=== PATIENT | female | born 1930 | race Caucasian/White ===

== ENCOUNTER 2016-06-28 23:59 | Inpatient (IN) | payer MEDICARE, BC ==
[~2016-06-28] VITALS: Ht 149.9 cm; Wt 70.0 kg
--- NOTE | ~2016-06-28 | CO ---
ADMIT: 06/29/2016 RM/LOC: 523 [facility] MR#: [id number] 2620 [facility] [address] [place] [phone] NOR[address]O JONES [address] [place] [address] Consultation SEX: F AGE: 85 : 1930 DATE OF CONSULTATION: 06/29/2016 ATTENDING PHYSICIAN: Noreen Laws CONSULTING PHYSICIAN: Lulu Fiore MD PROBLEM: Hydronephrosis. HISTORY OF PRESENT ILLNESS: This 85-year-old female presented to the emergency room at [facility] with nausea and inability to eat with generalized weakness. During her evaluation, she was found to have acute renal insufficiency with a serum creatinine of 5.0. A renal ultrasound was then performed demonstrating bilateral severe hydronephrosis. She has had no flank pain, fever, or chills and denies recurrent urinary tract infections or gross hematuria. She feels though she has been voiding without difficulty. MEDICATIONS: 1. Nitrostat 0.4 mg p.r.n. 2. Colace 100 mg b.i.d. p.r.n. 3. Pepcid 20 mg daily. ALLERGIES: NONE. OPERATIONS: None. REVIEW OF SYSTEMS: She does have a history of coronary artery disease with myocardial infarct x2. Also, depression and anxiety. FAMILY HISTORY: Negative for urologic problems. SOCIAL HISTORY: She does not smoke nor drink. PHYSICAL EXAMINATION: GENERAL: This is an elderly 85-year-old, in no acute distress. She is oriented x3. HEENT: Unremarkable. NECK: Supple without adenopathy. ABDOMEN: Soft, without masses or tenderness throughout. EXTREMITIES: Full range of motion without deformity. NEUROLOGICAL: She is grossly intact. LABORATORY DATA: Sodium 144, potassium 4.5, chloride 111, CO2 of 21, BUN 113, ADMIT: 06/29/2016 RM/LOC: 523 [facility] MR#: [id number] [address] [address] NORBERTO JONES [address] [place] [address] Consultation SEX: F AGE: 85 : 1930 glucose 104, and creatinine 4.4. CBC showed a white count of 8600 and hematocrit of 29.3. ASSESSMENT: Bilateral hydronephrosis with acute renal insufficiency. PLAN: Abdominal and pelvic CT scan will be performed without contrast. Depending upon these results, I would recommend cystoscopy with the placement of bilateral double-J ureteral stents which can be performed in the morning. Thank you for allowing us to assist in the care of your patient. Lulu Fiore MD/ cathy JOB #: [id number] CC: Noreen Laws, Attending Physician Noreen Laws, Family Physician Noreen Laws MD
--- NOTE | 2016-06-30 04:20 | ER ---
ADMIT: 06/29/2016 RM/LOC: 523 [facility] MR#: [id number] 2620 [facility] [address] [place] [phone] NORBERTO JONES [address] [place] [address] Emergency Room Report SEX: F AGE: 85 : 1930 DATE: 06/28/2016 CHIEF COMPLAINT: Nausea, not eating well, generalized weakness. HISTORY OF PRESENT ILLNESS: The patient is an 85-year-old female, who daughter brings in for what sounds like general deterioration in overall health status. She has been seen by her primary care physician in the last 24 hours where they did some lab work which showed some worsening acute on chronic renal insufficiency with elevated creatinine and BUN. She was actually set up to get some IV fluids at the hospital later today and an outpatient ultrasound of her kidneys, but due to some nausea this evening and inability to keep fluids down, the daughter brought her in to the ER this evening. She really has no complaints of any pain but just states she does not have any energy and really no desire to eat. She does have some nausea which is not new for her, but it seems like it has been worse in the past several days. REVIEW OF SYSTEMS: Ten-point review of systems is done and otherwise negative except as in HPI. PAST MEDICAL HISTORY: Significant for coronary artery disease with an HI x2. She also has depression and anxiety. MEDICATIONS: See nurse's note. ALLERGIES: NONE. PHYSICAL EXAMINATION: VITAL SIGNS: Blood pressure is 148/91, pulse 72, respirations 18, temp 96.8. GENERAL: The patient is not in any distress. She is alert but has a flat affect. HEENT: Head is atraumatic. Pupils are equal, round, reactive to light. HEART: Regular rate and rhythm. LUNGS: Clear to auscultation. ABDOMEN: Soft, nontender, and nondistended. She does have active bowel sounds. EXTREMITIES: She has no edema in her lower extremities. Motor and sensation are grossly intact in all 4 extremities. SKIN: Warm and dry with no rashes noted. LABORATORY DATA: Hemoglobin 10.3, platelets 421. CO2 is 19, BUN is 122, glucose is 139, creatinine is 5, magnesium 2.7, albumin 2.8. MEDICAL DECISION MAKING: I just discussed the case with Dr. Laws who had ADMIT: 06/29/2016 RM/LOC: 523 [facility] MR#: [id number] [address] [address] [address]O JONES [address] [place] [address] Emergency Room Report SEX: F AGE: 85 : 1930 just seen the patient in the last day, and at this point, we will admit the patient for further workup. She did get a liter of normal saline while in the Emergency Department and some Zofran for her nausea. She did have some persistent nausea, but it was improved. The patient will be admitted in stable and improved condition. DIAGNOSES: 1. Malnutrition. 2. Generalized weakness. 3. Failure to thrive. 4. Acute on chronic renal insufficiency. 5. Volume depletion. Jean Carlos Florez MD/ afual JOB #: [id number] CC: Noreen Laws MD, Attending Physician Noreen Laws MD, Family Physician
--- NOTE | 2016-07-01 09:06 | OR ---
ADMIT: 06/29/2016 RM/LOC: 523 [facility] MR#: [id number] 2620 [facility] [address] [place] [phone] NORBERTO JONES [address] [place] [address] Operative/Delivery Room Report SEX: F AGE: 85 : 1930 SURGERY DATE: 06/30/2016 SURGEON: Lulu Fiore MD PREOPERATIVE DIAGNOSIS: Bilateral hydronephrosis. POSTOPERATIVE DIAGNOSIS: Bilateral hydronephrosis. OPERATION: Cystoscopy with insertion of bilateral double-J ureteral stents. ANESTHETIC: General. INDICATION FOR PROCEDURE: This 85-year-old female came to the emergency room complaining of nausea and vomiting and was admitted for evaluation. An abdominal ultrasound demonstrated bilateral hydronephrosis and she is admitted now for cystoscopy with placement of bilateral double-J ureteral stents. DESCRIPTION OF OPERATION: After suitable general endotracheal anesthetic was obtained, the patient was placed in a dorsal lithotomy position with her genitalia and surrounding skin prepped and draped in usual sterile fashion. Examination of the external genitalia revealed a grade 4 uterine prolapse, which was easily reduced. With reduction of the prolapse, the 23-Nicaraguan Olympus cystoscope was inserted under direct visualization into the urethra. The urethra does appear to be normal upon entering the bladder, the trigone was well developed once the prolapsed uterus was inserted. Both ureteral orifices appeared to be in normal position. The bladder mucosa was 1+ trabeculated, but without evidence of infection or tumor. There was a cloudy appearance to her urine and after the bladder was irrigated several times, this did clear. A 6-Nicaraguan whistle-tip ureteral catheter was then inserted into the right ureteral orifice and a 0.038 Glidewire then inserted through the ureteral catheter. There was tortuosity of the distal ureter which made difficult for passage of the Glidewire initially. With some mild manipulation, the Glidewire was able to be advanced up the ureter into the renal pelvis. At ADMIT: 06/29/2016 RM/LOC: 523 [facility] MR#: [id number] 2620 [facility] [address] [place] [phone] NORBERTO JONES [address] [place] [address] Operative/Delivery Room Report SEX: F AGE: 85 : 1930 this point, the whistle-tip ureteral catheter was removed and a 7-Nicaraguan 24 cm double-J ureteral stent inserted over the Glidewire positioning the stent within the renal pelvis, ureter, and bladder. The string was then removed from the distal end of the stent. The Glidewire was then removed leaving the stent in good position as noted on fluoroscopy. In a similar fashion, the contralateral stent was inserted again with similar findings. A 7-Nicaraguan 24 cm double-J ureteral stent was inserted on the contralateral side. The bladder at this point was drained, and #16-Nicaraguan Malik catheter passed per urethra into the bladder and connected to straight drainage. The patient did tolerate the procedure without complications. Lulu Fiore MD/ cathy JOB #: [id number] CC: Noreen Laws, Attending Physician Noreen Laws, Family Physician Noreen Laws MD
--- NOTE | 2016-07-05 12:41 | CO ---
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 HISTORY OF PRESENT ILLNESS: The patient is an 85-year-old female, who was admitted to the hospital because of renal failure. She is accompanied at the time of this encounter by her two daughters as well as a son-in-law. She lives with one of her daughters. Reportedly, she has been declining since last January or February, which is almost 4 or 5 months now. She still continues to work and has been fairly active all of her life. She reports that she has been struggling with depression. Mood has not been very good. Her appetite has been extremely poor. However, recently, she started having persistent nausea as well as vomiting which was becoming more and more frequent. She was seen by yourself yesterday and was noted to have a creatinine of high 4's and BUN above 100. She was admitted for further management. She has been receiving IV fluids and her daughter notes that she is making slightly more urine than she was as an outpatient now. She also had a renal ultrasound which showed bilateral nkaibgtb-xu-etpmxg hydronephrosis. She denies any mqkp-qnu-zopfbbt medications or herbal supplements. As noted above, appetite has been poor. She denies any diarrhea, but has been constipated. Denies any skin rash or nodules. She just feels poorly and has no appetite at all. Denies any dyspnea or cardiac complaints. REVIEW OF SYSTEMS: A complete review of systems is negative in detail except as mentioned in history of present illness above. PAST MEDICAL HISTORY: 1. Coronary artery disease, status post PCI. 2. Carotid stenosis. 3. Arthritis. 4. Recurrent urinary tract infections. MEDICATIONS: Reviewed in the chart. ALLERGIES: NO KNOWN DRUG ALLERGIES. SOCIAL HISTORY: Lives at home with her daughter. Lifelong nonsmoker. No alcohol or recreational drug use. FAMILY HISTORY: No family history of chronic kidney disease or renal replacement therapy. Father had rheumatic fever. PHYSICAL EXAMINATION: VITAL SIGNS: Temperature 98 Fahrenheit, pulse 73, blood pressure 122/63, saturating 96% on room air. ADMIT: 06/29/2016 RM/LOC: 523 [facility] MR#: [id number] [address] [place] [phone] [address] [place] [address] Consultation SEX: F AGE: 85 : 1930 GENERAL: She is in bed and is comfortable. HEENT: Head is nontraumatic and normocephalic. Pale conjunctivae. Dry mucosa. CHEST: Clear to auscultation. CVS: Regular rate and rhythm. S1 and S2 heard. No rubs, murmurs, or gallops. ABDOMEN: Soft, nontender. EXTREMITIES: No edema. SKIN: No rash or nodules. NEUROLOGIC: Alert, awake, and oriented x3. She is able to move all her extremities. PSYCHIATRIC: Poor eye contact. Memory is within normal limits. LABORATORY DATA: Reviewed. BMP with sodium 144, potassium 4.5, CO2 of 21. Creatinine 4.4, down from 5.0 last night. BUN is 113, down from 122 last night. Hemoglobin is 9.0. No urine studies available to me for my review. Renal ultrasound showed bilateral gabwwrjq-eg-pmgypz hydronephrosis and hydroureter. ASSESSMENT AND PLAN: 1. Acute kidney injury/chronic kidney disease stage 3/stage 4 - This is likely prerenal in etiology with a component of obstructive nephropathy. 2. Azotemia secondary to #1 above. 3. Uremia - secondary to #1 and #2 above. 4. Anemia. I will check urine studies to evaluate the etiology of her acute kidney injury further. As stated above, this is likely prerenal plus obstruction. Continue IV fluids for the time being and provide supportive care. Avoid nephrotoxins such as NSAIDs, IV contrast, or Fleets enemas. I will await Urology evaluation to see what their plan would be as far as this obstruction is concerned. There is no emergent indication for renal replacement therapy at this time. Ingrid Gutierrez MD/ cathy JOB #: [id number] CC: Noreen Laws, Attending Physician Noreen Laws, Family Physician
--- NOTE | 2016-07-05 13:23 | OR ---
ADMIT: 06/29/2016 RM/LOC: 523 [facility] MR#: [id number] [address] [facility] [address] [place] [phone] NORBERTO JONES [address] [place] [address] Operative/Delivery Room Report SEX: F AGE: 85 : 1930 SURGERY DATE: 07/02/2016 SURGEON: Michelle Ace MD PREOPERATIVE DIAGNOSES: 1. Complete procidentia. 2. Epithelial breakdown due to recurrent trauma of the vaginal epithelium. 3. 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 PROCEDURES: 1. Biopsy of vaginal/cervical epithelium around breakdown. 2. Pessary fitting. INDICATIONS FOR PROCEDURE: This is an 85-year-old female who was admitted over the weekend with renal failure due to post obstructive hydronephrosis likely due to complete procidentia. The patient has had known procidentia for a number of years and in the past had used a pessary, but had not been using that for several years. Risks, benefits, and alternatives of biopsy of the epithelial breakdown site were discussed with the patient including bleeding, infection, injury to surrounding tissues, poor wound healing, potential need for additional biopsies. The patient voiced understanding and signed consent. DESCRIPTION OF PROCEDURE: Area along the junction between the cervical epithelium and vaginal epithelium has an ischial area that extends into the posterior vaginal wall of skin breakdown where it has come in contact with clothing as well as where she sits on it. This is approximately 1 cm x 3 cm in diameter. Edges were injected with 1% lidocaine without epinephrine after being cleansed with Betadine. Tischler forceps was used to take a series of several biopsies along the epithelial edge. Monsel's was applied to the site for good hemostasis. Procidentia was then replaced and size 7 pessary with ring support was placed and was found to be a little too large. This was removed. Size 6 was then placed. The patient was then stood up, was placed on a commode, Valsalva'd multiple times, and then re-examined and pessary found to stay in place. She indicated that it was comfortable, she did not feel it, and did not feel it adjusted. She said she actually felt better with this in place after procedure. COMPLICATIONS: None. PATHOLOGY: Vaginal epithelium biopsy sent to pathology. Michelle Ace MD/ cathy JOB #: [id number] CC: Noreen Laws, Attending Physician ADMIT: 06/29/2016 RM/LOC: 523 [facility] MR#: [id number] [address] [phone] NORBERTO JONES [address] [place] [address] Operative/Delivery Room Report SEX: F AGE: 85 : 1930 Noreen Laws, Family Physician
--- NOTE | 2016-07-05 13:23 | CO ---
ADMIT: 06/29/2016 RM/LOC: 523 [facility] MR#: [id number] 2620 [facility] [address] [place] [phone] NOR[address] JONES [address] [place] [address] Consultation SEX: F AGE: 85 : 1930 DATE OF CONSULTATION: 06/30/2016 ATTENDING PHYSICIAN: Noreen Laws CONSULTING PHYSICIAN: Michelle Ace MD REFERRING PHYSICIANS: Noreen Laws MD and Lulu Fiore MD. HISTORY OF PRESENT ILLNESS: This is an 85-year-old female, who presented to [facility] on June 29, with complaints of generalized fatigue, nausea, and vomiting. She was found to have significant hydronephrosis and acute renal failure as well as generalized weakness. CT scan did show that she has an 8 cm mass in her upper abdomen likely pancreatic mass, however, she also was noted to have 5 cm pelvic mass at the level of the cervix. I was asked for consultation by Dr. Fiore for concern that her hydronephrosis is likely caused by procidentia and pelvic organ prolapse. The patient indicates that her first symptoms of pelvic organ prolapse started in the late . She did use a pessary for several years until she was unable to do a pessary cares and cleaning by herself, and then she discontinued it. She notes that maybe over the last year or so it has gotten significantly worse. She has noticed over the last several months and that when she said she has a little bit of blood in her underwear from the procidentia, but she thinks it is from the epithelium, and does not think that this is coming from her uterus. She denies any other history of postmenopausal bleeding and menopause occurred at age 53. PAST MEDICAL HISTORY: 1. Coronary artery disease, status post PCI. 2. Carotid stenosis. 3. Arthritis. 4. Recurrent urinary tract infections. PAST SURGICAL HISTORY: She had today on 06/30/2016, cystoscopy with insertion of bilateral double-J ureteral stents. MEDICATIONS: Please see electronic medical record for details. ALLERGIES: NO KNOWN DRUG ALLERGIES. SOCIAL HISTORY: She lives with her daughter. 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 No tobacco, no alcohol, and no drug use. FAMILY HISTORY: No significant family history of chronic kidney disease, renal replacement. No significant history in the family of ovarian, breast, colon, or uterine cancers. REVIEW OF SYSTEMS: Full review of systems was performed, please see HPI for pertinent details. ADMIT: 06/29/2016 RM/LOC: 523 [facility] MR#: [id number] [address] [place] [phone] [address]BERTO JONES [address] [place] [address] Consultation SEX: F AGE: 85 : 1930 PHYSICAL EXAMINATION: VITAL SIGNS: Temperature is 98.2, pulse is 76, respirations 16, blood pressure is 134/89, and 97% on room air. GENERAL: She is in no acute distress. HEART: Regular rate and rhythm. No murmurs, rubs, or gallops. LUNGS: Clear to auscultation bilaterally. ABDOMEN: Firm, however, is nontender. She does have good bowel sounds. No fluid wave noted. PELVIC: On examination of external genitalia, the patient is observed to have complete procidentia. Her cervix is approximately 5 cm in diameter. Epithelium of the cervix and prolapsed vagina does show some decreased moisturization and atrophy, and some slight thickening that is not concerning. She does have a lesion on approximately 3 to 6 o'clock on the posterior aspect of her cervix, where it joins up with the vaginal epithelium that is eroded, it is approximately 2 mm deep and approximately 1 cm wide at its widest point. Area is erythematous. No active bleeding noted, but it is likely would easily bleed with irritation. No fungating lesions or masses noted. No inguinal lymphadenopathy noted. Procidentia is easily replaced with gentle pressure. The patient does tolerate this without significant problem. Bimanual exam is limited by body habitus. The uterus does appear to be mobile and no pelvic masses noted. IMAGING AND LABORATORY DATA: CT scan from 06/29/2016, shows 8 cm pancreatic mass with bilateral hydronephrosis, partially lobulated 5.2 cm pelvic mass, which is possible a cervical mass. White count is 8.3, hemoglobin 7.7, and platelets are 291. Sodium is 148, potassium 4.2, chloride 119, CO2 of 19, BUN is 100, creatinine is 2.9, and glucose is 88. ASSESSMENT AND PLAN: This 85-year-old female with complete procidentia, this is likely contributory cause of her hydronephrosis. She is status post treatment today by Urology, which will hopefully help to correct obstructive renal failure. Given the breakdown in the epithelium over the cervix, will return tomorrow morning and biopsied the area, and because of the imaging seen on CT, would recommend having a transvaginal ultrasound just to confirm normal ADMIT: 06/29/2016 RM/LOC: 523 [facility] MR#: [id number] [address] [place] [phone] NORBERTO JONES [address] [place] [address] Consultation SEX: F AGE: 85 : 1930 pelvic anatomy and evaluate her endometrial stripe. However, this would need to be performed after replacement of her procidentia and therefore I would need to be present at the time of imaging. Discussed with the patient and her family that if all biopsies are normal, She would likely be a very good candidate for pessary. She would likely need vaginal estrogen given the lesion on her cervix to help heal that tissue and for her to tolerate the pessary in place. The patient is amenable to this. We would need to do a pessary fitting as an outpatient and we can easily arrange this. If her endometrial stripe on ultrasound is more than 4 mm, and she will potentially need an endometrial biopsy as well. Thank you very much for this interesting consultation. Michelle Ace MD/ cathy JOB #: [id number] CC: Noreen Laws, Attending Physician Noreen Laws, Family Physician
[2016-07-06] MEDS ORDERED: ASPIRIN EC81 MG PO (18:18)
[2016-07-06] MEDS ORDERED: CIPRO DPS250 MG PO (18:19)
[2016-07-06] MEDS ORDERED: MIRALAX PACKET17 GM PO (18:19)
[2016-07-06] MEDS ORDERED: SENOKOT S1 TAB PO (18:21)
[2016-07-06] MEDS ORDERED: PREMARIN VAGINA VG (18:21)
--- NOTE | 2016-07-17 21:20 | DS ---
ADMIT: 06/29/2016 RM/LOC: 523 [facility] MR#: [id number] [id number] [facility] [address] [place] [id number] NAYA JONES [address] [place] [address] Discharge Summary SEX: F AGE: 85 : 1930 ADMISSION DATE: 06/29/2016 DISCHARGE DATE: 07/05/2016 DIAGNOSES: 1. Acute renal failure secondary to bladder outlet obstruction. 2. Uremia with nausea and vomiting. 3. Hypertension. 4. Carotid artery stenosis. 5. Anxiety. 6. Weakness. 7. Weight loss. 8. Pancreatic mass 8 cm. 9. Bilateral hydronephrosis. 10.Complete uterine prolapse. 11.Anemia of chronic disease. 12.Chest pressure. 13.Acute kidney injury/chronic kidney disease, stage III and stage IV. 14.Constipation. 15.Hypocalcemia. CONSULTS: 1. Urology. 2. Nephrology. 3. OB/Gynecology. PROCEDURE: 1. Ultrasound of the kidney 06/29/2016. 2. Noncontrast CT scan of the kidney 06/29/2016. 3. CT abdomen/pelvis noncontrast. 4. Cysto with bilateral stents 06/30/2016. 5. Pessary placement. 6. Pelvic ultrasound 06/30/2016 and 07/04/2016. 7. PRBC x1. 8. Vaginal/cervical epithelial biopsy 07/02/2016. 9. CT abdomen/pelvis 07/02/2016. 10.CT biopsy pancreas 07/03/2016. REASON FOR HOSPITALIZATION: Nausea, vomiting, and acute renal failure. See dictated H and P. LABORATORY AND X-RAY DATA: Sodium 144, potassium was 4.8 down to 3.5. CO2 initially was 19, final value was 19, BUN 122 down to 35, creatinine was 5 down to 2.5, blood sugars were variable-see chart. Calcium down to 5.9, final value was 6.5, phosphorus 5.3, total bilirubin 0.4, total protein 5.8, albumin 2, alkaline phosphatase 53, AST 14, magnesium 2.7 down to 1.8. Iron 39, TIBC 184, CK was normal in the 35s, CK-MB 2.4, troponin was 0.091 down to 0.083. B12 836, ferritin 153, haptoglobin 220, white count 7.5, hemoglobin was 10.3 on admission down to 7.2, final value 8.3. Platelet count 160. No cultures obtained. Ultrasound of the kidney with bilateral moderate to severe ADMIT: 06/29/2016 RM/LOC: 523 [facility] MR#: [id number] [address] [place] [id number] NAYA JONES [address] [place] [address] Discharge Summary SEX: F AGE: 85 : 1930 hydronephrosis and hydroureter with a questionable distal obstructing mass as well as a left renal mid pole mass-like area felt to be possible hemorrhagic component. CT scan noncontrast was performed of the abdomen and pelvis, which showed an 8 cm infiltrating mass in the pancreatic head and bilateral moderate to severe hydronephrosis and hydroureter, as well as a possible 5.2 cm cervical mass, which actually turned out to be prolapsed. Ultrasound of the pelvis with probable uterine fibroids, the largest measuring 1.[address] scan abdomen and pelvis 07/03 with large complex pancreatic mass, interval bilateral ureteral stent placement and pessary, as well as 5.5 cm left adnexal complex suggesting pelvic ultrasound. Pelvic ultrasound was performed and was nondiagnostic. COURSE IN HOSPITAL: Naya was admitted with uremic symptoms due to her acute renal failure. She was hydrated. Ultrasound results were noted. We did go ahead and order a noncontrast CT scan, and due to the hydronephrosis, Nephrology was asked to see. We held her Plavix and aspirin as we felt there would probably be some procedures being done. Nephrology was on board and following along. She had a cystoscopy and bilateral stent placement. Diet was advanced. Renal function began to return to normal. Her nausea and vomiting and uremic symptoms did improve. Malik was placed at the time of her cystoscopy and will remain in place until she follows up with Dr. Fiore in Urology. She started to have more appetite and had increased energy. We did notice a pancreatic mass on scan and felt the need for further testing. MRI was problematic because she is extremely claustrophobic and would likely need sedation with anesthesia. I am not sure I am anxious to completely sedate her with her carotid artery stenosis that is significant. Also, if we did an MRI and/or decided to do an ERCP, she would have to go to [facility], which if we could get a diagnosis of what we are dealing with in other ways, that would be better for her. For her prolapse, Gynecology was asked to follow. They did do a biopsy of an exposed area that is likely due to exposure. Also placed a pessary, which she noted immediate improvement. Her hemoglobin dwindled down and got down to 7.2. She was given a unit of blood with good results. Her renal function returned to normal with infusion. We had cut back the fluids, but we decided she needed to have a CT angiogram to look at vasculature before Interventional did a biopsy of her pancreatic mass. This was started in addition to Mucomyst. She tolerated this well and actually underwent a biopsy of this area on 07/02/2016. There was still a lot of concern about what was in her pancreas. Strongly suspect that this is probably malignant but would like to have pathology. After that, we can decide what treatment we want to do, if any. She is a little bit anxious with all that has been happening as is her daughter, which is normal for both of them. We continued with hydration and some rehab due to her weakness. By 07/05/2016, she was stable and ready for dismissal. Her primary complaint at this time is constipation. Working on that with medications. Otherwise, she is stable for dismissal and close followup. Prior to dismissal, she received Aranesp and Venofer. She will be dismissed with [facility] for PT/OT and RN. DISCHARGE MEDICATIONS: ADMIT: 06/29/2016 RM/LOC: [address] [facility] MR#: [id number] [address] [facility] [address] [place] [id number] NAYA JONES [address] [place] [address] Discharge Summary SEX: F AGE: 85 : 1930 1. She will have Cipro 250 daily for 7 days. 2. Coreg 6.25 b.i.d. 3. Iron 325 daily. 4. MiraLAX daily. 5. Senokot-S two b.i.d. 6. Zocor 40 at bedtime. 7. Zoloft 25 mg daily. 8. Premarin vaginal cream at bedtime to the affected area. 9. Tylenol 650 q.4h p.r.n. 10.Plavix 75 mg daily. 11.Aspirin 81 mg daily. She will see me in 7-10 days at which time we will hopefully have prior authorized Aranesp 40 mg subcu x1. If not a very good response to this, would consider increasing to 60 mg. Will evaluate as an outpatient. She is very nervous about the biopsy. We will see what it shows and then possibly involve Oncology. Discharge medications as written, and she will see me in 7-10 days. She will have her Malik with leg bag. Time spent 50 minutes. Noreen Laws MD/ anabel JOB #: [id number] CC: Noreen Laws MD, Attending Physician Noreen Laws MD, Family Physician R MD Ingrid Cervantes MD Libby Crockett, MD
[2016-09-04] MEDS ORDERED: ZOCOR DPS40 MG PO (14:48)
[2016-09-04] MEDS ORDERED: FEOSOL-DPS325 MG PO (14:48)
[2016-09-04] MEDS ORDERED: ELIQUIS5 MG PO (14:49)
[2016-09-04] MEDS ORDERED: VIACTIV SOFT C1 EACH PO (14:49)
[2016-09-04] MEDS ORDERED: COREG DPS6.25 MG PO (14:49)
[2016-09-04] MEDS ORDERED: QUESTRAN DPS4 GM PO (14:50)
[2016-09-04] MEDS ORDERED: FLAGYL-DPS500 MG PO (14:50)
[2016-09-04] MEDS ORDERED: TUMS DPS500 MG PO (14:50)
[2016-09-04] MEDS ORDERED: MERREM500 MG IV (14:51)
[2016-09-21] MEDS ORDERED: ZOLOFT25 MG PO (14:26)
[2016-09-21] MEDS ORDERED: PLAVIX75 MG PO (14:26)
[2016-09-21] MEDS ORDERED: PREPARATION H O60 GM TP (14:28)
[2016-09-21] MEDS ORDERED: TYLENOL DPS325 MG PO (14:28)
[2016-09-21] MEDS ORDERED: HYDROPHOR OINT450 GM TP (14:29)
== END 2016-07-05 17:56 | disposition home health service (06) | DRG 683 ==
LOC: ER 23:59 → 5MS 06-29 02:15
PROVIDERS: ADMIT Internal Medicine
PROC: 0T788DZ Dilation of Bilateral Ureters with Intraluminal Device, Via Natural or Artificial Opening Endoscopic (ICD-10-PCS; principal; 2016-06-30)
PROC: 30233N1 Transfusion of Nonautologous Red Blood Cells into Peripheral Vein, Percutaneous Approach (ICD-10-PCS; 2016-07-01)
PROC: 0FBG3ZX Excision of Pancreas, Percutaneous Approach, Diagnostic (ICD-10-PCS; 2016-07-03)
DX: N17.9 Acute kidney failure, unspecified (principal); E46 Unspecified protein-calorie malnutrition; I27.2 Other secondary pulmonary hypertension; I48.0 Paroxysmal atrial fibrillation; N13.8 Other obstructive and reflux uropathy; E83.51 Hypocalcemia; F32.9 Major depressive disorder, single episode, unspecified; I12.9 Hypertensive chronic kidney disease with stage 1 through stage 4 chronic kidney disease, or unspecified chronic kidney disease; I65.29 Occlusion and stenosis of unspecified carotid artery; I25.10 Atherosclerotic heart disease of native coronary artery without angina pectoris; F41.9 Anxiety disorder, unspecified; E78.2 Mixed hyperlipidemia; G47.00 Insomnia, unspecified; N18.3 Chronic kidney disease, stage 3 (moderate); K59.00 Constipation, unspecified; D64.9 Anemia, unspecified; N13.30 Unspecified hydronephrosis; N81.3 Complete uterovaginal prolapse; K86.9 Disease of pancreas, unspecified; Z98.61 Coronary angioplasty status; I25.2 Old myocardial infarction; Z82.49 Family history of ischemic heart disease and other diseases of the circulatory system; Z79.82 Long term (current) use of aspirin; Z87.440 Personal history of urinary (tract) infections

== ENCOUNTER → 2016-07-24 | Outpatient (CLI) | payer MEDICARE, BC ==
[~2016-07-24] MED LIST: ASPIRIN EC81 MG PO; CIPRO DPS250 MG PO; COREG DPS6.25 MG PO; ELIQUIS5 MG PO; FEOSOL-DPS325 MG PO; FLAGYL-DPS500 MG PO; HYDROPHOR OINT450 GM TP; MERREM500 MG IV; MIRALAX PACKET17 GM PO; PLAVIX75 MG PO; PREMARIN VAGINA VG; PREPARATION H O60 GM TP; QUESTRAN DPS4 GM PO; SENOKOT S1 TAB PO; TUMS DPS500 MG PO; TYLENOL DPS325 MG PO; VIACTIV SOFT C1 EACH PO; ZOCOR DPS40 MG PO; ZOLOFT25 MG PO
== END | disposition home or self-care (01) ==
LOC: RAD.S 08:08
DX: N13.30 Unspecified hydronephrosis (principal); N32.89 Other specified disorders of bladder; Z96.0 Presence of urogenital implants